=== PATIENT | female | born 1990 | race African-American/Black ===

== ENCOUNTER 2019-11-06 12:24 | Emergency (ER) | payer OTHER, SELFPAY ==
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
[2019-11-06 12:39] VITALS: BP 111/43; PULSE 90; RESP 16; TEMP 36.8; O2SAT 100
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
[2019-11-06 15:13] VITALS: BP 115/67; PULSE 64; RESP 16; O2SAT 100
== END 2019-11-06 15:14 | disposition home or self-care (01) ==
PROVIDERS: Emergency Provider Emergency Medicine
DX: S39.012A Strain of muscle, fascia and tendon of lower back, initial encounter (principal); V49.40XA Driver injured in collision with unspecified motor vehicles in traffic accident, initial encounter
CPT/HCPCS: 71045; 71101; 72128; 72131; 81025; 99284